=== PATIENT | male | born 1955 | race Caucasian/White ===

== ENCOUNTER → 2019-08-10 | Outpatient (CLI) | payer OTHER ==
[~2019-08-10] MED LIST: ALBU90OI INH; ASPI81CH PO; ATOR10 PO; CEPH500 PO; CLOP75 PO; CYCL10 PO; DIAZ5 PO; ERGO400 PO; LANSOPRAZOLE15 MG PO; LISI20 PO; METO25ER PO; METO50 PO; METPRE4DP PO; Metformin HCl1000 MG PO; Norco 10-325 T1 EACH PO; Norco 5-325 Ta1 EACH PO; OXYACE5T PO; Omeprazole20 M1 PO; Percocet 5-3251 EACH PO; ROXICODONE5 MG PO; Robaxin-750750 MG PO; SILD25T PO; SIMV5 PO; Simvastatin10 MG PO; Viagra100 MG PO; Zofran Odt4 MG SL; [UNRECOGNIZED DRUG - SUPPLY]
[2019-08-10 14:47] LABS: Microalb/Creat Ratio UR, Rand Unable to Calculate mg/g (0.000-30.000); Microalbumin, Random Urine <5.000 mg/L (0.000-20.000)
== END | disposition home or self-care (01) ==
LOC: LAB SHORT 09:35 → LAB 09:35
PROVIDERS: Nurse Practitioner Family
DX: E11.9 Type 2 diabetes mellitus without complications (principal)
CPT/HCPCS: 82043; 82570

== ENCOUNTER 2020-09-15 10:35 | Emergency (ER) | payer OTHER ==
[~2020-09-15] VITALS: Ht 182.9 cm; Wt 99.8 kg
[2020-09-15 11:13] LABS: BASOPHILS ABSOLUTE AUTO 0.04 K/mm3 (0.00-0.23); BASOPHILS PERCENT AUTO 0 % (0-2); EOSINOPHILS ABSOLUTE AUTO 0.09 K/mm3 (0.00-0.68); EOSINOPHILS PERCENT AUTO 1 % (0-6); Hemoglobin 16.8 g/dL (13.5-17.5); IMMATURE GRAN ABSOLUTE AUTO 0.07 K/mm3 (0.00-0.10); IMMATURE GRAN PERCENT AUTO 1 % (0-1); LYMPHOCYTES ABSOLUTE AUTO 2.05 K/mm3 (0.84-5.20); LYMPHOCYTES PERCENT AUTO 14 % (21-46); MONOCYTES ABSOLUTE AUTO 1.03 K/mm3 (0.16-1.47); MONOCYTES PERCENT AUTO 7 % (4-13); Mean Corpuscular HGB 31.1 pg (26.0-34.0); Mean Corpuscular HGB Conc 33.6 g/dL (31.5-36.5); Mean Corpuscular Volume 93 fL (80-100); Mean Platelet Volume 9.3 fL (9.1-12.4); NEUTROPHILS ABSOLUTE AUTO 11.42 K/mm3 (1.96-9.15); NEUTROPHILS PERCENT AUTO 78 % (41-73); Platelet Count 275 K/mm3 (150-400); RDW Coefficient Variation 12.1 % (11.7-14.2); RDW Standard Deviation 41.3 fL (35.1-46.3)
[2020-09-15 11:40] LABS: Alanine Aminotransfer (ALT/SGP 47 U/L (12-78); Albumin, Blood 4.1 g/dL (3.4-5.0); Albumin/Globulin Ratio 1.1 (0.8-1.8); Alk Phos 77 U/L (50-136); Anion Gap 10 mmol/L (6-16); Aspartate Aminotrans (AST/SGOT 31 U/L (12-37); Bilirubin, Total 0.6 mg/dL (0.1-1.0); Blood Urea Nitrogen 18 mg/dL (8-24); Bun/Creatinine Ratio 21.1 (12.0-20.0); CO2, Blood 19 mmol/L (21-32); Calcium, Blood 9.4 mg/dL (8.5-10.1); Chloride, Blood 107 mmol/L (98-108); Creatinine, Blood 0.85 mg/dL (0.60-1.20); Globulin, Blood 3.9 g/dL (2.2-4.0); Glomerular Filtration Rate >60 (60-); Glucose, Blood 111 mg/dL (70-99); Potassium, Blood 4.6 mmol/L (3.5-5.5); Sodium, Blood 136 mmol/L (136-145); Troponin I <0.015 ng/mL (0.000-0.040)
== END 2020-09-15 14:00 | disposition home or self-care (01) ==
LOC: ER 10:35
PROVIDERS: Physician Assistant
DX: R07.89 Other chest pain (principal); M54.6 Pain in thoracic spine; R19.7 Diarrhea, unspecified; D72.829 Elevated white blood cell count, unspecified; I10 Essential (primary) hypertension; I25.2 Old myocardial infarction; E11.9 Type 2 diabetes mellitus without complications; Z79.02 Long term (current) use of antithrombotics/antiplatelets; Z79.84 Long term (current) use of oral hypoglycemic drugs; Z79.899 Other long term (current) drug therapy; Z95.5 Presence of coronary angioplasty implant and graft; Z88.8 Allergy status to other drugs, medicaments and biological substances
CPT/HCPCS: 36415; 71046; 80053; 84484; 85025; 93005; 93010; 99285-25

== ENCOUNTER 2021-11-03 05:48 | Day surgery (SDC) | payer OTHER ==
[~2021-11-03] VITALS: Ht 182.9 cm; Wt 92.2 kg
--- NOTE | 2021-11-03 07:02 | NUR ---
History, Chart, Medications and Allergies reviewed before start of procedure. Lungs clear T/O to Auscultation. Patient confirms NPO status and agrees with scheduled surgery. Pre-Op teaching done. Pt verbalizes understanding. Patient reports completing Chlorhexadine shower X2 prior to admission to hospital.
--- NOTE | 2021-11-03 07:20 | NUR ---
PT AMB TO BATHROOM PRIOR TO GOING TO SURGERY
--- NOTE | 2021-11-03 10:25 | NUR ---
SPOKE WITH DR. MADRIGAL REGARDING COFFEE GROUND EMESIS. PLAN TO CALL CONSULT TO [facility]. PT IS STARTING WITH CLEAR LIQUIDS THEN WILL ADVANCE TOLERATED TO REGULAR DIET. PROTONIX STARTED PER DR. MADRIGAL.
--- NOTE | 2021-11-03 10:55 | NUR ---
PT ARRIVED TO THE UNIT AT 1015. HE IS DROWSY BUT AWAKENS EASILY, PT IS ORIENTED X4. DRESSING TO L KNEE C/D/I. PT REPORTS PAIN IS MANAGED. PT ORIENTED TO ROOM, STAFF AND CALL LIGHT. WILL CONTINUE TO MONITOR.
[2021-11-03] MEDS ORDERED: Percocet 5-3251 EACH PO (16:35)
--- NOTE | 2021-11-03 17:44 | NUR ---
PT REPORTED TO STAFF THAT HE WANTED TO LEAVE TODAY. PT WAS EDUCATED THAT IT IS RECOMENDED FOR HIM TO STAY OVERNIGHT FOR A SCOPE WITH DR. PRASAD. PT WAS UNWILLING TO REMAIN NPO FOR DR. PRASAD TO SCOPE HIM TODAY. PT WAS EDUCATED ABOUT THE RISKS OF EARLY DISCHARGE INCLUDING POSSIBLE WORSENING GI BLEED, , FALLS, AND INFECTION. PT REPORTED UNDERSTANDING AND SIGNED AMA DISCHARGE PAPERWORK, PAPERWORK WAS PLACED ON CHART.
--- NOTE | 2021-11-03 19:19 | NUR ---
AMA DISCHARGE PT LEFT AMA AT 1755. PT DECIDED TO LEAVE AMA R/T CONCERN ABOUT A POSSIBLE HOME INVASION OR SOMEONE HURTING HIS DOG; PT REPORTS A RECENT HOME INVASION. PT WAS ENCOURAGED TO CONTACT FRIENDS OR FAMILY TO WATCH HIS HOME SO HE COULD BE SEEN BY DR. PRASAD AND HAVE THERAPY TOMORROW; PT INITIALLY AGREED TO THIS, THEN DECIDED HE WANTED TO DISCHARGE DESPITE INCREASED RISKS. PT WAS EDUCATED ABOUT RISKS OF DISCHARGING HOME EARLY. HE WAS ALSO GIVEN HOME CARE INSTRUCTIONS, DRESSING CHANGE INSTRUCTIONS, DRESSINGS AND PRESCRIPTION FOR PAIN MEDICATION. PT REPORTED TO STAFF THAT HE WAS SELF MEDICATING TO MANAGE PAIN USING WISKEY PRIOR TO SURGERY; PT WAS EDUCATED ABOUT THE RISKS OF CONSUMING ALCOHOL WHILE TAKING PAIN MEDICATION. PT'S BP WAS ELEVATED PRIOR TO DISCHARGE, LISINOPRIL WAS GIVEN AND PT WAS EDUCATED TO CHECK HIS BP AT HOME PRIOR TO TAKING MORE BP MEDICATION. PT WAS EDUCATED ABOUT SAFETY AND FALL PREVENTION AT HOME. HE WAS ALSO EDUCATED ON WAYS TO REDUCE RISK OF INFECTION. PT ENCOURAGED TO ASK FOR HELP FROM FRIENDS AND FAMILY MEMBERS TO CARE FOR HIS ANIMALS. DIFFICULT TO ASSESS PT'S LEVEL OF UNDERSTANDING HE FREQUENTLY INTERUPTED STAFF WHILE EDUCATION WAS GIVEN. EDUCATION WAS REINFORCED MULTIPLE TIMES. PT WORKED WITH THERAPY X1 PRIOR TO DISCHARGE. HE WAS UNWILLING TO REMAIN NPO UNTIL DR. VALLADARES COULD CONSULT ON HIM AND WAS UNWILLING TO STAY OVERNIGHT FOR SCOPE TOMORROW. PT WAS EDUCATED TO FOLLOW UP WITH HIS PRIMARY CARE DOCTOR OR GI WITHIN 1 WEEK REGARDING COFFEE GROUND EMESIS. PT REPORTED HE DID NOT WANT TO SEE DR. VALLADARES OUTPATIENT; HE EXPRESSED DISPLEASURE THAT THE DOCTOR EXPECTED HIM TO STAY NPO UNTIL HE ROUNDED, SINCE THE PT WOULD NOT HAVE BEEN ABLE TO EAT SINCE MIDNIGHT LAST NIGHT. PT WAS EDUCATED THAT HE COULD REQUEST A DIFFERENT GI DOCTOR BUT IT WAS VERY IMPORTANT TO FOLLOW UP REGARDING POSSIBLE GI BLEEDING. DR. MADRIGAL AND DR. PRASAD BOTH AWARE THAT PT LEFT AMA.
== END 2021-11-03 17:55 | disposition left against medical advice (07) ==
LOC: ORSCMMR 05:48 → ORD 09:45 → SURS 10:15 → ORSCMMR 17:55
PROVIDERS: Orthopaedic Surgery
PROC: 0SRD0JA Replacement of Left Knee Joint with Synthetic Substitute, Uncemented, Open Approach (ICD-10-PCS; principal; 2021-11-03 07:30)
DX: M17.12 Unilateral primary osteoarthritis, left knee (principal); Z96.651 Presence of right artificial knee joint; E11.9 Type 2 diabetes mellitus without complications; G47.33 Obstructive sleep apnea (adult) (pediatric); I25.10 Atherosclerotic heart disease of native coronary artery without angina pectoris; E78.00 Pure hypercholesterolemia, unspecified; E78.1 Pure hyperglyceridemia; Z87.891 Personal history of nicotine dependence; Z79.899 Other long term (current) drug therapy; I25.2 Old myocardial infarction; I12.9 Hypertensive chronic kidney disease with stage 1 through stage 4 chronic kidney disease, or unspecified chronic kidney disease; N18.9 Chronic kidney disease, unspecified; Z79.02 Long term (current) use of antithrombotics/antiplatelets
CPT/HCPCS: 73560-LT; 82947; 97116; 97161; 97530; A9270; C1776; C9113; J0171; J0690; J0735; J1100; J1885; J2250; J2370; J2405; J2704; J2795; J3010; J7120

== ENCOUNTER → 2022-01-26 | Outpatient (CLI) | payer OTHER | END | disposition home or self-care (01) | LOC: PLD 07:49 → LAB SHORT 07:49 | DX: L57.0 Actinic keratosis (principal); L90.5 Scar conditions and fibrosis of skin; R23.4 Changes in skin texture | CPT/HCPCS: 88305 ==

== ENCOUNTER → 2022-03-16 | Outpatient (CLI) | payer OTHER | END | disposition home or self-care (01) | LOC: PLD 12:34 → LAB SHORT 12:34 | DX: L72.8 Other follicular cysts of the skin and subcutaneous tissue (principal) | CPT/HCPCS: 88304 ==

== ENCOUNTER → 2024-11-22 | Outpatient (CLI) | payer OTHER | LOC: LAB SHORT 08:48 → LAB 08:48 | DX: D10.39 Benign neoplasm of other parts of mouth (principal) | CPT/HCPCS: 88305 ==

== ENCOUNTER → 2024-12-26 | Outpatient (CLI) | payer OTHER | LOC: LAB SHORT 18:21 → LAB 18:21 | DX: R35.0 Frequency of micturition (principal); M54.50 Low back pain, unspecified | CPT/HCPCS: 87086 ==